=== PATIENT | male | born 1985 | race African-American/Black ===

== ENCOUNTER 2018-04-20 02:24 | Emergency (ER) | payer MEDICAID ==
[~2018-04-20] VITALS: Ht 182.9 cm; Wt 104.0 kg
[2018-04-20 02:26] VITALS: BP 150/67
== END 2018-04-20 04:30 | disposition left against medical advice (07) ==
LOC: ER 02:24
DX: K08.89 Other specified disorders of teeth and supporting structures (principal); Z53.21 Procedure and treatment not carried out due to patient leaving prior to being seen by health care provider